=== PATIENT | male | born 1995 | race Caucasian/White ===

== ENCOUNTER 2019-11-25 21:39 | Emergency (ER) | payer SELFPAY ==
[~2019-11-25] VITALS: Ht 177.8 cm; Wt 91.0 kg
[2019-11-25] MEDS ORDERED: PREDNISONE 20MG TABLET PO STA (21:51)
[2019-11-25] MEDS ORDERED: ALBUTEROL (0.083%) 2.5MG/3ML NEB HHN STA (21:51)
[2019-11-25 23:19] VITALS: BP 138/87
== END 2019-11-25 23:21 | disposition home or self-care (01) ==
LOC: ER 21:39
DX: J45.901 Unspecified asthma with (acute) exacerbation (principal)
CPT/HCPCS: 71045; 94640; 99283; J7512; Z7610